=== PATIENT | male | born 1995 | race Caucasian/White ===

== ENCOUNTER 2024-05-27 13:12 | Outpatient (CLI) | payer BC, SELFPAY ==
--- NOTE | 2024-05-27 13:15 | XR_ITS ---
FINAL REPORT CLINICAL HISTORY: Left shoulder pain FINDINGS: TWO VIEW LEFT SHOULDER FINDINGS: Two views show no evidence of an acute, displaced fracture or dislocation of the visualized bony architecture. The joint spaces appear normal. IMPRESSION: Unremarkable exam. Authenticated and ERN
== END 2024-05-27 23:59 | disposition home or self-care (01) ==
LOC: RAD 13:14
PROVIDERS: Visit Provider Physician Assistant
DX: M25.512 Pain in left shoulder (principal)
CPT/HCPCS: 73030